=== PATIENT | male | born 1955 | race Caucasian/White ===

== ENCOUNTER 2020-06-27 11:08 | Outpatient (CLI) | payer BC, SELFPAY ==
--- NOTE | 2020-06-27 10:15 | DI.RAD_ITS ---
EXAM: XR KNEE RT 3V AP,LAT,NAHID CLINICAL HISTORY: knee pain TECHNIQUE: COMPARISON: No exams were available for comparison FINDINGS: Three views were obtained. There is moderate narrowing of the lateral tibiofemoral cartilaginous emerald nt space and slight narrowing of medial tibiofemoral cartilaginous joint space. There are prominent marginal osteophytes at multiple sites, most marked at the lateral tibial margin. 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 RADIATION DOSE DELIVERED: Total DLP
== END 2020-06-27 11:28 ==
PROVIDERS: Referring Provider Student in an Organized Health Care Education/Training Program; Visit Provider Student in an Organized Health Care Education/Training Program
DX: M17.11 Unilateral primary osteoarthritis, right knee (principal)
CPT/HCPCS: 73562

== ENCOUNTER 2020-07-22 08:29 | Outpatient (CLI) | payer BC, SELFPAY ==
[2020-07-24 10:47] LABS: COVID-19 RT-PCR Result NEGATIVE (Negative)
== END 2020-07-22 08:49 ==
PROVIDERS: Visit Provider Student in an Organized Health Care Education/Training Program
DX: Z11.59 Encounter for screening for other viral diseases (principal); Z01.818 Encounter for other preprocedural examination
CPT/HCPCS: U0003

== ENCOUNTER 2020-07-27 09:18 | Day surgery (SDC) | payer BC, SELFPAY ==
[2020-07-27 09:52] VITALS: BP 124/86; PULSE 62; RESP 18; TEMP 36.4; O2SAT 97
[2020-07-27] MEDS: Acetaminophen 500 MG TAB 1000 MG PO (10:25)
[2020-07-27] MEDS: Celecoxib 200 MG CAP 400 MG PO (10:25)
[2020-07-27] MEDS: Lactated Ringers 1,000 ML 80 ML IV (10:25)
--- NOTE | 2020-07-27 10:32 | PDOC.DSDIS_ITS ---
Documented by User: MARIANO Padilla 07/27/20 10:37 Discharge Plan Disposition Patient Disposition: HOME Condition: Good Discharge Details Reason For Visit: Right knee arthroscopy Attending Provider: Sravan Purcell Primary Care Provider: Jennifer Pelayo Home Meds and New Rx's Prescriptions: New hydrocodone-acetaminophen 5-325 mg tablet 1 tab PO Q6H PRN (Reason: pain) Qty: 10 RF: 0 ibuprofen 600 mg tablet 600 mg PO TID PRN (Reason: pain) Qty: 30 RF: 0 acetaminophen 500 mg capsule 500 mg PO Q4H PRN (Reason: pain) Qty: 30 RF: 0 Continued aspirin 81 mg Tablet,Delayed Release (Dr/Ec) 81 mg PO DAILY RF: 0 Discharge Instructions Stand Alone Forms: Jazzy Knee Arthroscopy, DSU Post op Instructions, Josefina Ballard (DSU) Referrals: Sravan Purcell MD [ [facility] STAFF PHYSICIAN] - Equipment/Supplies: Partial Weight Bearing Crutches Activity:: Activity as Tolerated Remove Dressings/Wound Care:: 72 hours Shower/Bathe:: 72 hours Diet:: As Tolerated Discharge Orders Discharge Orders: Discharge Order (Routine); Ordered 07/27/20 Ordered By: Stephen Michael Discharge Data Discharge Date/Time-TO BE ENTERED AT DEPARTURE: 07/27/20 14:06 DS: Diagnosis Discharge Diagnosis (1) Tear of lateral meniscus of right knee: Status: Acute Documented by User: Sravan Purcell MD 07/30/20 09:51 Discharge Plan Disposition Patient Disposition: HOME Condition: Good Discharge Details Reason For Visit: Right knee arthroscopy Attending Provider: Sravan Purcell Primary Care Provider: Jennifer Pelayo Home Meds and New Rx's Prescriptions: New hydrocodone-acetaminophen 5-325 mg tablet 1 tab PO Q6H PRN (Reason: pain) Qty: 10 RF: 0 ibuprofen 600 mg tablet 600 mg PO TID PRN (Reason: pain) Qty: 30 RF: 0 acetaminophen 500 mg capsule 500 mg PO Q4H PRN (Reason: pain) Qty: 30 RF: 0 Continued aspirin 81 mg Tablet,Delayed Release (Dr/Ec) 81 mg PO DAILY RF: 0 Discharge Instructions Stand Alone Forms: Jazzy Knee Arthroscopy, DSU Post op Instructions, Josefina Ballard (DSU) Referrals: Sravan Purcell MD [ [facility] STAFF PHYSICIAN] - Equipment/Supplies: Partial Weight Bearing Crutches Activity:: Activity as Tolerated Remove Dressings/Wound Care:: 72 hours Shower/Bathe:: 72 hours Diet:: As Tolerated Discharge Orders Discharge Orders: Discharge Order (Routine); Ordered 07/27/20 Ordered By: Stephen Michael Discharge Data Discharge Date/Time-TO BE ENTERED AT DEPARTURE: 07/27/20 14:06
[2020-07-27] MEDS: ceFAZolin 2 GM/50 ML BAG IVPB (10:57)
[2020-07-27] MEDS: Bupivacaine 0.5% Pres-Free 30 ML VIAL (11:37)
[2020-07-27 12:25] VITALS: BP 118/65; PULSE 51; RESP 16; TEMP 36.2; O2SAT 98
[2020-07-27 13:30] VITALS: BP 130/74; PULSE 53; RESP 16; TEMP 36; O2SAT 98
--- NOTE | 2020-07-28 07:42 | W.PM.OP ---
Date of service: 07/27/20 Time of Service: 12:42 Operative Note Operative Note DATE OF PROCEDURE: 07/27/20 PRE-OP DIAGNOSIS: Right Knee Lateral Meniscus Tear POST-OP DIAGNOSIS: same Right Knee Medial Meniscus Tear, Right Knee Grade IV Lateral Chondromalacia PROCEDURE: Right knee arthroscopic partial medial and lateral meniscectomies SURGEON: Sravan Purcell ANESTHESIA: spinal ESTIMATED BLOOD LOSS: 0 PATHOLOGY: none sent TOURNIQUET TIME: 0 COMPLICATIONS: None Patient was transported to: same day Patient's condition: stable Indications: I have seen Stephen in clinic for symptoms of a meniscus tear. This was confirmed based on exam findings. Nonoperative measures were exhausted but disability and pain persisted. I discussed knee arthroscopy with meniscal intervention with the patient. I reviewed the risks of the procedure to include, but not limited to, bleeding, infection, pain, stiffness, damage to nerves or vessels, recurrence, blood clot. Despite these risks, the patient elected to proceed. Findings: A diagnostic arthroscopy was performed with the following findings: Suprapatellar Pouch: Mild inflammatory changes, no loose bodies Medial Compartment: Complex medial meniscal tear, intact meniscal root, no significant chondromalacia or signs of arthritis, no loose bodies Notch: ACL and PCL were intact Lateral Compartment: Displaced, complex meniscal tear, intact meniscal root, grade IV chondromalacia of both tibia and femur, no loose bodies Patellofemoral Compartment: Grade II chondromalacia of the patellar apex, no apparent patellar maltracking Procedure Description: Stephen was greeted in the preoperative holding area where the correct side was identified and marked. The consent was reviewed with the patient and signed. The history and physical was updated. All questions were answered. He was taken back to the operating room. The patient was placed into the supine position on the operating room table. All bony prominences were well padded. Prophylactic antibiotics in the form of cefazolin were administered. The right leg was then prepped with Chloraprep and draped in a standard fashion with stockinette and extremity drape. A timeout to confirm correct identity, side and site, procedure, allergies, anesthesia, and medical concerns was performed. The leg was placed into a pneumatic leg barron, [id number]. A standard lateral portal was made at the lateral border of the patella tendon in line with the inferior pole of the patella, soft spot. The skin and deep tissue was incised sharply and the blunt trochar was inserted atraumatically. A diagnostic arthroscopy was performed and the findings are listed above. The suprapatellar pouch had mild inflammatory change. The patellofemoral articulation showed some grade II chondromalacia at the apex as well as good tracking. The lateral gutter had no loose bodies but there was a portion of the displaced meniscus visible as well as a small peripheral osteophyte. The medial gutter had no loose bodies. The knee was brought into some valgus stress in extension to open the medial compartment. A medial portal was made, localized by a spinal needle. The portal was created with an #11 blade through skin and capsule under direct visualization avoiding any meniscal injury. A probe was then inserted into the medial compartment. The medial compartment was fully inspected. The chondral surface of the tibia showed no significant chondromalacia and the surface of the femur showed no significant chondromalacia. The medial meniscus had a complex tear involving the root and the undersurface at the level of the horn. After evaluation, the meniscus was debrided down to a stable base using a series of biters and arthroscopic saige. It was probed afterwards to confirm that the tear had been removed and the meniscus was stable. The notch was then inspected which showed an intact ACL and an intact PCL. The leg was then brought into a figure of 4 position. The lateral compartment was fully inspected with the arthroscope and a probe. The chondral surface of the lateral femur showed significant chondromalacia, grade 4. The chondral surface of the lateral tibia showed similar exposed bone, grade IV chondromalacia. The lateral meniscus had a complex tear involving a large portion of the meniscus extending into the anterior body through the posterior body. A large portion of the anterior body was displaced from the periphery. The root was intact.. After evaluation, the meniscus was debrided down to a stable base using a series of biters and arthroscopic saige. It was probed afterwards to confirm that the tear had been removed and the meniscus was stable. The arthroscope was brought back into the suprapatellar pouch and the leg was in full extension. The knee was thoroughly irrigated with the arthroscopic fluid on high flow and pressure. Inflow was stopped and excess fluid was removed. The wounds were closed with 4-0 Nylon. They were dressed with Xeroform, 4x4 gauze, ABD pad, Kerlix and an LEE wrap. A cryo-cuff was applied. The patient tolerated the procedure well and was returned to the Same Day Surgery area in a stable condition suffering no known complication.
== END 2020-07-27 14:06 | disposition home or self-care (01) ==
PROVIDERS: PCP Internal Medicine; Visit Provider Student in an Organized Health Care Education/Training Program
PROC: (CPT 29870; principal; 2020-07-27 12:30)
DX: S83.281A Other tear of lateral meniscus, current injury, right knee, initial encounter (principal); S83.231A Complex tear of medial meniscus, current injury, right knee, initial encounter; X58.XXXA Exposure to other specified factors, initial encounter; M94.261 Chondromalacia, right knee
CPT/HCPCS: 29880; J0690; J2405

== ENCOUNTER 2023-05-31 08:25 | Outpatient (CLI) | payer MEDICARE, SELFPAY ==
--- NOTE | 2023-05-31 08:41 | DI.RAD_ITS ---
Exam(s) XR KNEE LT 3V AP,LAT,NAHID EXAM: XR KNEE LT 3V AP,LAT,NAHID CLINICAL HISTORY: left knee pain. TECHNIQUE: 2D digital imaging was performed. COMPARISON: CR XR KNEE RT 3V AP,LAT,NAHID from 06/27/2020 FINDINGS: 3 views No evidence of fracture. There appears to be a small joint effusion. Mild degenerative changes. Mi ld narrowing of the medial compartment. There is a calcific density seen posterior medially which is most probably within a Correia cyst in the popliteal fossa. This measures 9 by 6 mm. IMPRESSION: Mild degenerative changes. Joint effusion and there also is a 9 x 6 mm calcific density seen behind in the in what is probably w ithin a Correia cyst DATA REPOSITORY: RADIATION DOSE DELIVERED:
== END 2023-05-31 08:26 | disposition home or self-care (01) ==
LOC: DIORS 08:25
PROVIDERS: PCP Internal Medicine; Referring Provider Internal Medicine; Visit Provider Student in an Organized Health Care Education/Training Program
DX: M23.92 Unspecified internal derangement of left knee
CPT/HCPCS: 73562; 99213

== ENCOUNTER → 2023-07-29 15:09 | Outpatient (BNVA) | payer MEDICARE, SELFPAY | PROVIDERS: PCP Internal Medicine; Referring Provider Internal Medicine; Visit Provider Student in an Organized Health Care Education/Training Program | DX: M23.92 Unspecified internal derangement of left knee (principal) | CPT/HCPCS: 20610; J1040 ==

== ENCOUNTER → 2023-08-09 00:22 | Outpatient (CLI) | payer MEDICARE, SELFPAY ==
--- NOTE | 2023-08-09 07:30 | DI.MRI_ITS ---
Exam(s) MR LOWER JOINT LT WO EXAM: MR LOWER JOINT LT WO CLINICAL HISTORY: left knee pain,internal derangement, m23.92. TECHNIQUE: Multiplanar multisequence MRI was performed. COMPARISON: CR XR KNEE LT 3V AP,LAT,NAHID from 05/31/2023 FINDINGS: BONES: There is no fracture or contusion pattern. Degenerative JOINTS: A small joint effusion is present. Articular cartilage: Patellofemoral joint: Mild cartilage irregularity. Medial femoral tibial joint: Articular cartilage shows mild thinning.. Lateral femoral tibial joint: Area of cartilage thinning and irregularity extending nearly down to b one anteriorly.. TENDONS: Extensor mechanism: Unremarkable. Medial retinaculum: Unremarkable. Lateral retinaculum: Unremarkable. Popliteus: Unremarkable. MUSCLES: Unremarkable. MENISCI: The medial meniscus arm shows an inferior surfacing on oblique tear through the posterior ho rn to the body.. The lateral meniscus is shows blunting at the apex of the body some increased signa l in the body. SOFT TISSUES: Small Correia's cyst containing calcification as was noted on plain film. Additional flu id collection seen anterior to the lateral tibial plateau contains 4 adjacent calcifications. LIGAMENTS: Anterior Cruciate: Some thickening and edema. Findings could indicate partial tear versus mucoid deg eneration. Posterior Cruciate: Unremarkable. Medial Collateral:Unremarkable. Lateral Collateral: Unremarkable. IMPRESSION: Inferior surfacing tear of the posterior horn of the medial meniscus. Blunting the apex and irregula r high signal in the body of the lateral meniscus. Anterior cruciate ligament sprain versus mucoid degeneration. Small Correia's cysts contain attaining loose body. Additional loose bodies seen anteriorly adjacent to the anterior lateral tibial plateau. DATA REPOSITORY:
== END ==
PROVIDERS: PCP Internal Medicine; Visit Provider Student in an Organized Health Care Education/Training Program
DX: M71.22 Synovial cyst of popliteal space [Baker], left knee; S83.242A Other tear of medial meniscus, current injury, left knee, initial encounter; X58.XXXA Exposure to other specified factors, initial encounter
CPT/HCPCS: 73721

== ENCOUNTER → 2023-11-28 09:03 | Outpatient (BNVA) | payer MEDICARE, SELFPAY | PROVIDERS: PCP Internal Medicine; Referring Provider Internal Medicine | DX: M23.92 Unspecified internal derangement of left knee (principal) | CPT/HCPCS: 20610; J1040 ==

== ENCOUNTER 2024-06-08 13:59 | Outpatient (CLI) | payer MEDICARE, SELFPAY ==
--- NOTE | 2024-06-08 11:10 | DI.RAD_ITS ---
Exam(s) XR KNEE LT 3V AP,LAT,NAHID EXAM: XR KNEE LT 3V AP,LAT,NAHID CLINICAL HISTORY: eval L knee OA. TECHNIQUE: 2D digital imaging was performed. COMPARISON: CR XR KNEE LT 3V AP,LAT,NAHID from 05/31/2023 FINDINGS: 3 views There is no evidence of fracture nor obvious joint effusion. There is significant degenerative narrowing of the medial compartment with tiny marginal osteophytes. Lesser degenerative changes are noted in the lateral patellofemoral compartments. There are [address] calcified loose intra-articular bodies evident located anterolaterally in the joint space. IMPRESSION: Degenerative changes as above. Increased from May 2023. Loose intra-articular bodies are also ev ident. DATA REPOSITORY: RADIATION DOSE DELIVERED:
--- NOTE | 2024-06-08 11:10 | DI.RAD_ITS ---
Exam(s) XR STANDING ALIGNMENT EXAM: XR STANDING ALIGNMENT CLINICAL HISTORY: eval knee alignment. TECHNIQUE: 2D digital imaging was performed. COMPARISON: CR XR KNEE RT 3V AP,LAT,NAHID from 06/27/2020 CR XR KNEE LT 3V AP,LAT,NAHID from 05/31/2023 MR MR LOWER JOINT LT WO from 08/09/2023 FINDINGS: 3 views There are moderate degenerative changes in both knees involving both medial and lateral compartments. Prominent marginal osteophyte is seen off the outer aspect of the lateral tibial plateau of the rig ht knee, but unchanged from 06/27/2020 amount of narrowing of both knees appears unchanged from prior studies. Mild degenerative changes are noted in the right hip. Left hip appears unremarkable. Ankles unremar kable. Bone density normal. No osseous lesions. IMPRESSION: Degenerative changes in both knees (moderate). DATA REPOSITORY: RADIATION DOSE DELIVERED:
== END 2024-06-08 14:00 | disposition home or self-care (01) ==
LOC: DIORS 13:59
PROVIDERS: PCP Internal Medicine; Referring Provider Internal Medicine; Visit Provider Student in an Organized Health Care Education/Training Program
DX: M23.92 Unspecified internal derangement of left knee (principal); M17.11 Unilateral primary osteoarthritis, right knee; M17.12 Unilateral primary osteoarthritis, left knee
CPT/HCPCS: 20610; 73562; J1010; 77073

== ENCOUNTER 2024-09-17 03:23 | Outpatient (CLI) | payer MEDICARE, SELFPAY ==
[2024-09-17 09:56] LABS: HCT 48.6 % (40.0-50.0); HGB 16.2 g/dL (13.5-17.5); MCH 31.2 pg (27.0-33.0); MCHC 33.3 % (32.0-36.0); MCV 94 fL (80-95); MPV 9.1 fL (8.0-11.0); Platelet Count 257 10^3/uL (130-400); RDW 13.4 % (11.8-14.1); RDW-SD 46.7 fL; WBC 4.58 10^3/uL (4.4-10.8)
[2024-09-17 10:10] LABS: Anion Gap 6.9 mmol/L (3-11); BUN 16 mg/dL (7-18); CO2 30.1 mmol/L (21.0-32.0); Calcium 9.6 mg/dL (8.5-10.1); Chloride 105 mmol/L (98-107); Estimated GFR 82.49 (mL/min/1.73m2); Glucose 107 mg/dL (74-106); Potassium 4.3 mmol/L (3.5-5.1); Sodium 142 mmol/L (136-145)
== END 2024-09-17 03:24 | disposition home or self-care (01) ==
LOC: LBO 03:23
PROVIDERS: PCP Internal Medicine; Visit Provider Student in an Organized Health Care Education/Training Program
DX: M17.12 Unilateral primary osteoarthritis, left knee (principal); Z01.818 Encounter for other preprocedural examination
CPT/HCPCS: 36415; 80048; 85027

== ENCOUNTER 2024-09-29 05:58 | Day surgery (SDC) | payer MEDICARE, SELFPAY ==
--- NOTE | 2024-09-28 18:25 | ANES.PREOP_ITS ---
General Info Date of Service Date Performed: 09/29/24 Height: 6 ft Weight: 96.162 kg Body Mass Index (BMI): 28.7 Surgical Procedure: Operation Date: 09/29/24 07:40 Proposed Procedure Side Surgeon p Knee Total Arthroplasty, Cementless CR Left Sravan Purcell MD s Knee Injection Right Sravan Purcell MD Meds Allergies and Home Medications Allergies Allergy/AdvReac Type Severity Reaction Status Date / Time No Known Allergies Allergy Verified 09/29/24 06:16 Home Medication ?Medication ?Instructions ?Recorded aspirin 81 mg tablet,delayed 81 mg PO DAILY 07/26/20 release acetaminophen 500 mg capsule 500 mg PO Q4H PRN pain #30 caps 07/27/20 ibuprofen 600 mg tablet 600 mg PO TID PRN pain #30 tabs 07/27/20 cholecalciferol (vitamin D3) 25 25 mcg PO DAILY 09/17/24 mcg (1,000 unit) capsule Current Visit Medications: Current Medications Generic Name Dose Route Start Last Admin Trade Name Freq PRN Reason Stop Dose Admin Acetaminophen 1,000 mg 09/29/24 06:00 Acetaminophen 500 Mg Tab PO 10/28/24 23:59 PREOP MICHAELA Celecoxib 400 mg 09/29/24 06:00 Celecoxib 200 Mg Cap PO 10/28/24 23:59 PREOP MICHAELA Gabapentin 300 mg 09/29/24 06:00 Gabapentin 300 Mg Cap PO 10/28/24 23:59 PREOP MICHAELA Ringer's Solution 1,000 mls @ 80 mls/hr 09/29/24 06:00 IV 10/28/24 23:59 INFUSION MICHAELA Cefazolin Sodium/Dextrose 2 gm in 50 mls @ 100 mls/hr 09/29/24 06:00 Ancef Duplex IVPB 10/28/24 23:59 PREOP MICHAELA Tranexamic Acid/Sodium Chloride 1,000 mg in 100 mls @ 600 mls/hr 09/29/24 06:00 IVPB 10/28/24 23:59 PREOP MICHAELA IV Miscellaneous Supplies 1 each 09/29/24 06:00 Iv Access IV 10/28/24 23:59 DIRECTED MICHAEAL Sodium Chloride 0 ml 09/29/24 06:00 Normal Saline Flush 10 Ml Syr IV 10/28/24 23:59 PRN PRN Sodium Chloride 0 ml 09/29/24 06:00 Normal Saline 10 Ml Vial IJ 10/28/24 23:59 DIRECTED PRN Sterile Water 0 ml 09/29/24 06:00 Water,Injection,Sterile 10 Ml Vial IJ 10/28/24 23:59 DIRECTED PRN PFSH Active Problems Active Problems: Problem Status Onset Code Osteoarthritis of left knee Acute M17.12 Arthritis of right knee Acute M17.11 Surgical History Surgical History Tear of lateral meniscus of right knee S/P Arthroscopy: 07/28/2020 Hx of colonoscopy [place] teeth extracted Tobacco Smoking/Tobacco Use Status: Never Alcohol Alcohol Intake: current Alcohol intake frequency: 0-2 drinks per day Alcohol type: beer Substance Use Substance use: Never Substance use type: does not use Vital Signs and Lab Results Lab Results Blood Type / Crossmatch: No Data to Display Complete Blood Count: White Blood Count 4.58 10^3/uL (4.4-10.8) 09/17/24 09:53 Red Blood Count 5.20 10^6/uL (4.36-5.78) 09/17/24 09:53 Hemoglobin 16.2 g/dL (13.5-17.5) 09/17/24 09:53 Hematocrit 48.6 % (40.0-50.0) 09/17/24 09:53 Platelet Count 257 10^3/uL (130-400) 09/17/24 09:53 Complete Metabolic Panel: Sodium 142 mmol/L (136-145) 09/17/24 09:53 Potassium 4.3 mmol/L (3.5-5.1) 09/17/24 09:53 Chloride 105 mmol/L (98-107) 09/17/24 09:53 Carbon Dioxide 30.1 mmol/L (21.0-32.0) 09/17/24 09:53 BUN 16 mg/dL (7-18) 09/17/24 09:53 Creatinine 1.0 mg/dL (0.70-1.30) 09/17/24 09:53 Est GFR (CKD-EPI 2020) 82.49 (mL/min/1.73m2) 09/17/24 09:53 Calcium 9.6 mg/dL (8.5-10.1) 09/17/24 09:53 Glucose 107 mg/dL (74-106) H 09/17/24 09:53 Liver Function Panel: No Data to Display Coagulation Panel: No Data to Display Cardiac Panel: No Data to Display Arterial Blood Gas: No Data to Display Venous Blood Gas: No Data to Display Pancreas Panel: No Data to Display Thyroid Panel: No Data to Display Infectious Disease: No Data to Display Blood Cultures: No Data to Display Toxicology Panel: No Data to Display Anesthesia Assessment and Plan Anesthesia History Personal History: No History of Anesthesia Complications Family History: No Family History of Anesthesia Complications Exercise Tolerance Exercise Tolerance: Metabolic Equivalents>4 Cardiac & Pulmonary Exam Cardiac Exam: Normal S1/S2 Heart Sounds Pulmonary Exam: Clear Bilateral Breath Sounds Implantable Cardiac Device Does patient have a Pacemaker or an ICD?: No Airway Exam Known Difficult Airway: No Mallampati Class: 2 Mouth Opening: Normal (> 3cm) Thyromental Distance: Greater than 3 cm Neck Range of Motion: Full ROM Neck Circumference: Normal Teeth Condition: Normal Dentition ASA Classification ASA Score: ASA 2 Emergency Case?: No NPO Status NPO Status: NPO Clears >2 hours, Solids >8 hours Anesthesia Plan Resuscitation Status: Full Code Anesthesia Technique: Spinal Anesthesia Airway Planned: Natural Airway Pain Management: Surgeon and patient request nerve block Monitors Used: Standard Monitors Preoperative Comments:: 69 yo male for TKA. Sig PMHx: no major. no home meds. Previous Anes: - knee scope, spinal, no sedation.
[2024-09-29 06:23] VITALS: PULSE 66; TEMP 36.4; O2SAT 97
[2024-09-29] MEDS: Gabapentin 300 MG CAP PO (06:47)
[2024-09-29] MEDS: Celecoxib 200 MG CAP 400 MG PO (06:47)
[2024-09-29] MEDS: Acetaminophen 500 MG TAB 1000 MG PO (06:47)
[2024-09-29] MEDS: Normal Saline 500 ML 30 ML IV (06:55)
[2024-09-29 07:01] VITALS: BMI 28.7
--- NOTE | 2024-09-29 07:21 | PDOC.DSDIS_ITS ---
Date of service: 09/29/24 Discharge Plan Disposition Patient Disposition: Home Condition: Good Discharge Details Reason For Visit: Bilateral knee DJD Attending Provider: Sravan Purcell Primary Care Provider: Jennifer Pelayo Home Meds and New Rx's Prescriptions: New acetaminophen 500 mg tablet 1,000 mg PO Q8H PRN Qty: 90 0RF Rx Instructions: Take two tablets up to every 8 hours as needed for pain aspirin 81 mg tablet,delayed release (DR/EC) 81 mg PO BID 30 Days Qty: 60 0RF celecoxib [Celebrex] 200 mg capsule 200 mg PO BID PRNQty: 60 0RF Rx Instructions: Take one tablet twice daily for pain and inflammation docusate sodium [Colace] 100 mg capsule 100 mg PO BID Qty: 30 0RF pantoprazole 40 mg tablet,delayed release (DR/EC) 40 mg PO DAILY Qty: 14 0RF dexamethasone 4 mg tablet 4 mg PO DAILY Qty: 2 0RF Rx Instructions: Take one tablet once daily for two days gabapentin 300 mg capsule 300 mg PO QHS Qty: 14 0RF Rx Instructions: Take one tablet at bedtime oxycodone 5 mg tablet 5 mg PO Q4H PRNQty: 18 0RF Rx Instructions: Take one tablet up to every 4 hours as needed for severe postoperative pain Continued cholecalciferol (vitamin D3) 25 mcg (1,000 unit) capsule 25 mcg PO DAILY Discontinued aspirin 81 mg Tablet,Delayed Release (Dr/Ec) 81 mg PO DAILY ibuprofen 600 mg tablet 600 mg PO TID PRN (Reason: pain) Qty: 30 0RF acetaminophen 500 mg capsule 500 mg PO Q4H PRN (Reason: pain) Qty: 30 0RF Discharge Instructions Additional Instructions: Total Knee Discharge Instructions Activity: The most important activity is to walk and to work on gentle motion (both flexion and extension). You should try to take short walks a few times a day. It is important that when resting you work on keeping the knee straight. Avoid putting a pillow behind the knee as this will encourage flexion. Work on range of motion exercises as provided by Physical Therapy. - Start outpatient physical therapy within 2 weeks. - You should wear the ALBERTINA hose on both legs for 2 weeks. You may remove these at night. You may also use any compression sock in place of the ALBERTINA hose. - Utilize [employer] to review exercises, see videos on exercises and obtain basic information pertaining to your surgery and your recovery. - For your right knee following injection you may experience increased discomfort and swelling. Apply ice to knee as needed. You may remove Band-Aid later this evening. Steroid can take up to 2 weeks to have full benefit. Dressing: Remove the Lucas wrap by 2 days after your surgery and put on the ALBERTINA stocking given to you from the hospital. Keep the surgical dressing (underneath the LUCAS wrap) in place for at least one week. After the first week it may be removed and replaced with light gauze and tape or nothing. The wound and dressing may get wet after 3 days but avoid soaking the dressing or otherwise it will need to be changed. Many people prefer covering the dressing with cling wrap (saran wrap) to minimize it from getting soaked. If it gets wet, just pat dry. If it starts to peel off then it will need to be changed. Medications: - You should take Tylenol and anti-inflammatory Celebrex as your primary pain control medications. If the Celebrex is too expensive or not covered, please call the office for another alternative (Advil/Ibuprofen or Naproxen/Aleve) - You have been prescribed a stronger pain medication Oxycodone for breakthrough pain, take as needed as prescribed. - You have also been prescribed a stomach acid reduction agent Pantoprozole to help reduce stomach acid and reflux. - You have been prescribed Gabapentin to take at night for restlessness and nerve pain. - You will be taking Aspirin 81mg twice a day for DVT prevention unless instructed otherwise. - You have also been prescribed Decadron to take to control post-operative nausea and pain. You will start this tomorrow. - If you have constipation you should take Colace (which has been prescribed) or Miralax (which is available [id number]). It takes most people 3-4 days to have a bowel movement. Follow-up: 2 weeks If you have any acute concerns or questions, please do not hesitate to contact the office at [phone]. You may contact Dr. Purcell with any questions after hours through the hospital at [phone] or on his cell phone at [phone]. Referrals: Sravan Purcell MD [ [facility] STAFF PHYSICIAN] - Equipment/Supplies: Walker Activity:: Elevate Remove Dressings/Wound Care:: Do Not Remove Shower/Bathe:: Cover Diet:: As Tolerated Discharge Orders Discharge Orders: Discharge Order (Routine); Ordered 09/29/24 Ordered By: Ana Hunter
[2024-09-29 07:27] VITALS: BP 124/81; PULSE 71; RESP 18; TEMP 36.5; O2SAT 96
--- NOTE | 2024-09-29 07:27 | W.ANESNERVE ---
Nerve Block Single Injection Procedure Date and Time Date Performed: 09/29/24 Procedure Start: 07:42 Location Where Procedure Performed Procedure Location: Day Surgery Unit Reason Performed: Postoperative Analgesia Requesting Provider: Sravan Purcell Timeout Performed Timeout Performed: Yes Monitoring Used ECG, Blood Pressure and SpO2 Sterility Sterility: Hand Hygiene, Surgical Cap, Surgical Mask, Sterile Gloves and Chlorhexidine Sedation Given During Procedure Sedation Given (Indicate Dose Given): Versed IV Dose:: 1 mg Patient Mental Status Patient Mental Status: Awake Nerve Block 1st Nerve Block: Laterality: Left Block Type: Adductor Canal Ultrasound Image Saved?: Yes Needle / Catheter Used: 100mm SonoPlex II Local Anesthetic Bolus (Indicate Dose Given): Lidocaine used for local infiltration of skin and Bupivacaine 0.25% Dose:: 10 mL Additives (Indicate Dose Given): None Ultrasound: Sterile probe cover and gel used Nerve Stimulator: Supplement to Ultrasound use and No twitch or parasthesia noted < 0.5 mA Paresthesia: None Procedure Tolerated: No Complications Procedure Outcome: Successful Performed By: Avinash Medina 2nd Nerve Block: Laterality: Left Block Type: Other (AFCN) Ultrasound Image Saved?: Yes Needle / Catheter Used: 100mm SonoPlex II Local Anesthetic Bolus (Indicate Dose Given): Bupivacaine 0.25% Dose:: 5 mL Additives (Indicate Dose Given): None Ultrasound: Sterile probe cover and gel used Nerve Stimulator: Primary Nerve Stimulator Technique and No twitch or parasthesia noted < 0.5 mA Paresthesia: None Procedure Tolerated: No Complications Procedure Outcome: Successful Performed By: Avinash Medina
[2024-09-29] MEDS: ceFAZolin 2 GM/50 ML BAG IVPB (07:38)
[2024-09-29] MEDS: TRANEXAMIC ACID/SOD. CHL. 1,000 MG/100 ML BAG 600 MG IVPB (07:44)
[2024-09-29] MEDS: Bupivacaine 0.5% Pres-Free 30 ML VIAL (08:01)
[2024-09-29] MEDS: methylPREDNISolone ACETATE 80 MG/ML VIAL (08:01)
--- NOTE | 2024-09-29 09:01 | W.PM.OP ---
Operative Note Operative Note PRE-OP DIAGNOSIS: Bilateral Knee Osteoarthritis POST-OP DIAGNOSIS: same PROCEDURE: Left Total Knee Replacement Right Knee Injection SURGEON: Sravan Purcell [employer] CONSULTANT: Ana Hunter ANESTHESIA TYPE: Spinal Refer to Anesthesia Record ESTIMATED BLOOD LOSS: 50 PATHOLOGY: none sent TOURNIQUET TIME: 0 COMPLICATIONS: None Patient was transported to: PACU Patient's condition: stable Implants: 1. Depuy Attune Cementless Cruciate Retaining Femoral Component, Size 7 2. Depuy Attune Cementless Fixed Bearing Tibial Component, Size 7 3. Depuy Attune 7x10mm CR/FB Poly 4. Depuy Attune Patellar Component, Size 38 Indications: I have seen Paco in clinic for symptoms of bilateral knee arthritis, confirmed with radiographic findings. He has exhausted nonoperative methods and was having significant limitations in daily function and desired better function and less pain. I discussed the technical details of a knee replacement. I explained the risks of the procedure to include, but not limited to, bleeding, infection, pain, stiffness, fracture, damage to nerves and vessels, damage to muscles and tendons, loosening, need for repeat procedure, blood clot and cardiopulmonary demise. Despite these risks, Paco elected to proceed with left knee replacement and right knee injection. Findings: There was significant signs of arthritis throughout the knee, much worse than expected based on MRI and x-ray. There is complete loss of cartilage in the trochlea both medially and laterally as well as throughout the medial compartment and within a trough of the lateral femur.. Procedure Description: Paco was greeted in the preoperative holding area where the correct side was identified and marked. The consent was reviewed with the patient and signed. The history and physical was updated. All questions were answered. Preoperative medications were administered: Acetaminophen 1000mg, Celebrex 400mg, and Gabapentin 300mg. An adductor canal block was then administered by the anesthesia team in the DSU. Paco was taken back to the operating room. A spinal anesthestic was then administered. The patient was placed into the supine position on the operating room table. Posts were placed for positioning during the procedure. All bony prominences were well padded. Prophylactic antibiotics in the form of Cefazolin were administered. 1g of Tranxemic Acid was given intravenously within 30 minutes of incision. A timeout to confirm correct identity, side and site, procedure, allergies, anesthesia, and medical concerns was performed. The lateral border of the patella on the right leg was then prepped ChloraPrep. The injection to the right knee was then performed utilizing 60 cc of 0.5% ropivacaine and 80 mg of Depo-Medrol. Then, the left leg was then prepped with Chloraprep and draped in a standard fashion with impervious stockinette. A second prep with Chloraprep was performed prior to application of Iodine impregnated skin protection. With the knee in some flexion, a midline incision was made overlying the knee. Full thickness skin flaps were raised once the extensor mechanism was encountered. These were raised medially and laterally. Any bleeding was controlled with electrocautery. Once the extensor mechanism was fully exposed, a medial parapatellar arthrotomy was performed in a flexed position. All bleeding from the arthrotomy and the geniculate arteries was coagulated. A medial subperiosteal peel was performed with electrocautery to the midcoronal plane. The fat pad was removed while keeping the patellar tendon protected. The anterior distal femur synovium was removed for later visualization. The ACL and PCL were resected and the anterior horn of the lateral meniscus was transected. The knee was then flexed with the patella everted. There was notable loss of cartilage throughout the entirety of the trochlea, medial compartment as well as a trough of the lateral femur, all down to bone with notable irregularity. Significant synovitis. Using a step drill, and based on preoperative templating, the femoral canal was entered. This was done with a step drill without any difficulty. The intramedullary distal femoral cut guide was inserted, set to a 5 degree valgus cut and 8mm cut thickness. The distal femoral cut guide was then held in position and pinned. With the soft tissues protected, the distal cut was performed. This was passed over a few times to ensure a planar cut. I then turned attention to the tibia. The extramedullary guide was placed onto the leg. The distal aspect was slid medial to adjust for position of center of ankle and stay in line with shaft of the tibia. Approximately 3-5 degrees of posterior slope was kept in the proximal cutting guide. The center of the guide was aligned with the PCL. The stylus was used to assess cut thickness. The medial side, most involved side, was set for a 6mm cut. This was then held in position and pinned into place with 2 additional pins and a cross pin for stability. The medial and lateral collateral ligaments were protected and the cut was performed. With this completed, it was assessed and noted to be of appropriate dimensions. The guide was removed. A spacer block was inserted and the knee was brought into extension. The 8mm spacer block provided full extension, without hyperextension and with stability of both the medial and lateral collateral ligaments was assessed. The pins from the femur and the tibia were then removed. The distal femur was then sized. The anterior stylus was placed onto the lateral ridge of the anterior femur. This indicated a size 7 femur. The external rotation of the guide was adjusted to 3 degrees to match the epicondylar axis, perpendicular to [place]?s line. The 4-in-1 cutting guide was the placed. The posterior medial femur cut was evaluated and appeared of good thickness. The spacer block was inserted underneath the cutting guide and stability was confirmed in 90 degrees of flexion. An jaxon wing was used to confirm appropriate position of the anterior cut to avoid notching. This cutting guide was ensured to be flush on the cut surface and then pinned into place with headed pins. While protecting the soft tissues, quad tendon, and collateral ligaments, the anterior and posterior cuts were performed with a saw. The central two pins were removed and the posterior and anterior chamfers were cut next. The notch-cutting guide was placed. This was pinned to lateralize the femoral component as much as possible while keeping it flush on the cut surface. This was then pinned into position. A reciprocating saw was used to make the notch cut. A rasp smoothed the cut surfaces. The medial and lateral menisci were removed. A trial femoral component was then inserted, impacted down to the cut surfaces, and the lug holes were drilled. A provisional trial tibial component was placed and the knee was brought through range of motion. The polyethylene was trialed until there was good flexion and extension with excellent stability to the medial and lateral collaterals. The patella was tracking without thumbs. A size 10mm polyethylene component provided the best range of motion and stability with less than 2mm gapping with medial and lateral stress and full extension without significant hyperextension. The tibial cut surface was fully exposed. The tibia was then sized as a 7. The tibia had been previously marked during trialing to correspond to the center of the tibial component to help with rotation. The trial was aligned to this paco, approximately rotated to the medial 1/3rd of the tibial tubercle. The trial was pinned into place. The tibia was prepared with a reamer and a keel punch and lug holes. The knee was then brought into extension and the patella was measured as 27mm. Using the patellar clamp and cut guide, this was resected to a flat surface with at least 13mm of thickness remaining. The size 38 patella fit the best. This was oriented and then clamped into position. The lugs were drilled. The trial components were removed. The final components were opened on the back table. The periosteal and capsular tissues, especially posteriorly, around the knee were then systematically injected with a periarticular cocktail consisting of 246mg of Ropivacaine, 0.5mg of Epinephrine, 0.08mg of Clonidine, and 30mg of Ketorolac, diluted to 100cc. On the back table, with the implants opened, the cement was mixed. One batch of high viscosity cement was prepared with vacuum assistance. After the cement was ready a small amount was placed on the cut surface of the patella and the patellar button was clamped into position and held. While the cement was hardening, the cementless knee components were placed. Starting with the tibial component, the tibia was subluxed anteriorly and the lug holes of the component were lined up. The tibia was then impacted with an impactor and mallet until the tibial component was in contact with the tibia. The final polyethylene component was inserted. Then, the femoral component was inserted. The lug holes were aligned and the component was impacted into position. The knee was irrigated with Surgiphor Betadine solution. This was allowed to sit in the knee for 3 minutes and then it was irrigated out with saline. After the cement had finally cured, approximately 15min, the clamp was removed from the patella and the knee was taken through range of motion. The patella was tracking with a no-thumbs technique. The capsule was then reapproximated with a No. 1 Vicryl at multiple locations. The capsule was finally closed with a No. 2 Stratafix, barbed suture. The second dosing of 1g TXA was started. Deep tissues were then reapproximated with 0 Vicryl and 2-0 Vicryl. The skin was closed with a running 3-0 Monocryl in a subcuticular fashion. This was reinforced with skin glue. A Mepilex silver dressing was applied along with a [id number] LEE wrap. A CryoCuff was applied. Paco was transferred to the hospital bed without difficulty an suffering no apparent complication. Paco has a good prognosis. Physical therapy will start today and without restrictions, weight-bearing as tolerated. Aspirin 81mg BID will be used for DVT prophylaxis. Date of Procedure: 09/29/24
[2024-09-29 09:16] VITALS: TEMP 36.1
[2024-09-29 09:36] VITALS: BP 109/64; PULSE 68; RESP 16; TEMP 36.3; O2SAT 96
--- NOTE | 2024-09-29 09:44 | W.ANESPOSTOP ---
Postoperative Evaluation Date, Time and Location Date Performed: 09/29/24 Time Performed: 09:44 Patient Location: Day Surgery Unit Vital Signs Most Recent Imported Vital Signs: Most Recent Vital Signs Temp Pulse Resp BP Pulse Ox 36.1 C L 71 18 124/81 96 09/29/24 09:16 09/29/24 07:27 09/29/24 07:27 09/29/24 07:27 09/29/24 07:27 Pain Score Most Recent Pain Score: Most Recent Pain Score Pain Level 0 09/29/24 09:26 Assessment Mental Status: Awake (Alert & Oriented to Patient Baseline) Airway and Respiratory Function: Patent airway with normal (patient baseline) respiratory exam Cardiovascular Function: Hemodynamically Stable Hydration Status: Adequately Hydrated Nausea & Vomiting: No Nausea or Vomiting Pain: Pt. Denies Any Pain (spinal waning. ) Peripheral Nerve Block: Regional nerve block not resolved at time of post operative discharge
[2024-09-29 10:11] VITALS: BP 127/61; PULSE 62; RESP 16; TEMP 36.2; O2SAT 97
[2024-09-29 11:10] VITALS: BP 112/68; PULSE 69; RESP 16; TEMP 36.3; O2SAT 98
--- NOTE | 2024-09-29 11:22 | PT.INIE ---
PT Notes Visit Reasons: Bilateral knee DJD Physical Therapy Day Surgery Initial Evaluation Date: 09/29/2024 Referring Doctor:Dr Purcell PT Orders: PT CONSULT: s/p Ortho surgery Precautions:WBAT , TEDs x 2 weeks Patient Profile/Admitting Diagnosis:Pt is 69 yo male presenting s/p elective Left TKA and s/p injection to right knee under spinal anesthesia. Post op uncomplicated. PMHX: OA B Knees, s/p right knee menescus surgery in past. multiple injections to B knees Social History/Home Situation: Pt resides with in single family home with 3 ATIYA no rail. Pt is Independent with ADL, iADL, driving, meal prep, shopping. Pt is employed multimedia artist. He reports he climbs the 5 FOS to his office but was using the elevator to go down. He reports being an avid walker/hiker until 6 months ago Equipment Owned/DME: Cane and FWW Subjective: Pt reports his knee does not hurt his thigh hurts. Pt reports he performs step to pattern climbing stairs however he does reciprocal pattern down stairs but it is not pretty Objective: General Observation: male presented semireclined on stretcher with cryocuff to left knee, present Mental Status: A+O x 4 , cooperative motivated Pain: left thigh 3/10 ROM: [] Right Upper Extremity: WNL Left Upper Extremity: WNL Right Lower Extremity: WNL Left Lower Extremity: WNL except knee 0-106degrees Strength: [] Right Upper Extremity: 5/5 Left Upper Extremity: 5/5 Right Lower Extremity: 5/5 Left Lower Extremity:Hip flexion: 3- /5; hip abduction: 3-/5; hip extension: 3/5; knee extension: 3 /5; knee flexion: 3- /5 ankle DF: 3 /5 ; ankle PF: 3/5; pt able to perform quad set however requires continuous cues to isolate Quad. and eliminate glute and hamstring compensation, SLR in short range Sensation: intact Bed Mobility/Transfers: Supine to sit supervision Sit to stand supervision Stand to sit supervision Bed to chair supervision with FWW Gait: ambulate with FWW supervision 150 feet with reciprocal pattern demonstrating reduced left knee flexion during swing phase, pt required initial cueing to hold quad during mid stance LLE . Pt able to carry over without further cueing. Stairs: 5 steps with 2 rails step to pattern Supervision cues for sequencing, 5 steps with cane CGA, no rails. cues for sequencing Balance: Static Sitting:Normal Dynamic Sitting: Good Static Standing: Good Dynamic Standing:Good - Special Tests: Mobility Limitations Standardized Measure [] [facility] AM-PAC 6 clicks Basic Mobility Inpatient Short Form: [] Raw Score: 23 CMS Score: 11.20% Informed Consent/Education: Patient instructed in purpose of PT consult. Packet containing TKA exercise protocol has been given to patient. Education and training on initial set of exercises that can be done at home have been completed with patient. Assessment: Patient presents with clinical signs and symptoms consistent with current/admitting diagnoses that have resulted to mobility limitations, gait instability, generalized weakness, and impairment of motor control as demonstrated by the following impairment level findings: 1. Decreased strength to left knee major muscle groups 2. Impaired standing balance 3. Limitation of joint range of motion in left knee 4. Impaired standing activity tolerance Impairments are contributing to the following functional limitations: 1. Inability to safely ambulate without assistive device 2. Increase completion time for mobility ADL performance 3. Increased fall risk 4. Inability to perform the stairs without assistance. Patient is assessed as a low complexity based on the following: History:69-year-old male with impairment level findings, functional limitations, and past medical history as indicated above Examination: Demonstrable impairment in strength, balance, and mobility level with underlying impairments and functional limitations as documented above Presentation:stable Decision Making: low Goals: N/A. Plan of Care/Treatment Plan: N/A. DISCHARGE RECOMMENDATIONS: Home with Outpatient PT as scheduled TREATMENT CODE/TIME: 13697, [id number] /[id number] Thank you for the opportunity to participate in the care of this patient. [facility]
== END 2024-09-29 11:55 | disposition home or self-care (01) ==
PROVIDERS: PCP Internal Medicine; Visit Provider Student in an Organized Health Care Education/Training Program
PROC: (CPT 27447; principal; 2024-09-29 07:30)
PROC: (CPT 20610; 2024-09-29 07:30)
DX: M17.0 Bilateral primary osteoarthritis of knee (principal); G89.18 Other acute postprocedural pain; M25.562 Pain in left knee
CPT/HCPCS: 20610; 27447; 64447; 64450; 97110; 97161; C1776; J0665; J0690; J1010; J1100; J2250; J2371; J2401; J2405; J2704

== ENCOUNTER 2024-10-12 15:50 | Outpatient (CLI) | payer MEDICARE, SELFPAY ==
--- NOTE | 2024-10-12 10:40 | DI.RAD_ITS ---
Exam(s) XR KNEE LT 1V XR STANDING ALIGNMENT EXAM: XR STANDING ALIGNMENT CLINICAL HISTORY: 1ST POST OP S/P L TKA. TECHNIQUE: 2D digital imaging was performed. Standing AP views were performed from the pelvis throu gh the ankles. COMPARISON: CR XR KNEE LT 3V AP,LAT,NAHID from 06/08/2024 CR XR STANDING ALIGNMENT from 06/08/2024 CR XR KNEE LT 1V from 10/12/2024 FINDINGS: BONES: No acute fracture is present. No bony destructive lesion is seen. Leg length discrepancy : the left femoral head projects 5 millimeters superior to the right. JOINTS: Knees: A total knee prosthesis has been placed since the prior exam. The alignment appears s atisfactory. Moderate degenerative changes are again noted in the right knee. The ankle joints are unremarkable. The hip joints show acetabular spurring. SOFT TISSUE: Normal. IMPRESSION: Satisfactory alignment of left knee prosthesis. Moderate degenerative changes of the right knee. Mild overall leg length discrepancy. DATA REPOSITORY: RADIATION DOSE DELIVERED:
== END 2024-10-12 15:51 | disposition home or self-care (01) ==
LOC: DIORS 15:50
PROVIDERS: PCP Internal Medicine; Visit Provider Student in an Organized Health Care Education/Training Program
DX: Z96.652 Presence of left artificial knee joint (principal); Z47.1 Aftercare following joint replacement surgery
CPT/HCPCS: 99024; 73560; 77073

== ENCOUNTER → 2024-11-09 10:06 | Outpatient (BNVA) | payer MEDICARE, SELFPAY | PROVIDERS: PCP Internal Medicine; Referring Provider Internal Medicine; Visit Provider Student in an Organized Health Care Education/Training Program | DX: Z47.1 Aftercare following joint replacement surgery (principal); Z96.652 Presence of left artificial knee joint | CPT/HCPCS: 99024 ==

== ENCOUNTER 2025-09-30 13:36 | Outpatient (CLI) | payer MEDICARE, SELFPAY ==
--- NOTE | 2025-09-30 09:07 | DI.RAD_ITS ---
Exam(s) XR KNEE LT 2V AP,LAT EXAM: XR KNEE LT 2V AP,LAT CLINICAL HISTORY: HX of left knee replacement. TECHNIQUE: 2D digital imaging was performed. Two images were obtained. AP and lateral views were obtained. COMPARISON: CR XR KNEE LT 3V AP,LAT,NAHID from 06/08/2024 CR XR KNEE LT 1V from 10/12/2024 CR XR STANDING ALIGNMENT from 10/12/2024 FINDINGS: BONES: There are stable post operative changes of a left total knee arthroplasty present. No fracture or dislocation. JOINTS: The orthopedic hardware is in good position. No evidence of hardware loosening. SOFT TISSUE: Atherosclerotic calcification is present. IMPRESSION: Stable left total knee arthroplasty. DATA REPOSITORY: RADIATION DOSE DELIVERED:
== END 2025-09-30 13:37 | disposition home or self-care (01) ==
LOC: DIORS 13:36
PROVIDERS: PCP Internal Medicine; Visit Provider Physician Assistant
DX: M17.11 Unilateral primary osteoarthritis, right knee (principal); Z96.652 Presence of left artificial knee joint
CPT/HCPCS: 20610; J1010; 73560